=== PATIENT | male | born 1975 | race Caucasian/White ===

== ENCOUNTER → 2016-10-16 | Outpatient (CLI) | payer BC ==
[~2016-10-16] MED LIST: IBUP-103 PO; OMEG10007 PO
== END | disposition home or self-care (01) ==
LOC: C.LAB 17:53
PROVIDERS: ATTEND Orthopaedic Surgery
DX: M25.561 Pain in right knee (principal)

== ENCOUNTER 2023-06-23 09:44 | Observation (INO) ==
--- NOTE | 2023-05-22 10:28 | PAT Medication Instructions ---
Medication Instructions Date of Service May 22, 2023 Home Medications Medication Instructions Recorded oxycodone 5 mg tablet 5 mg PO Q6 PRN pain #30 tabs 04/14/23 diclofenac sodium 75 mg 75 mg PO BID #60 tabs 05/07/23 tablet,delayed release MEDICATION LIST omega 2-yic-uey-fish oil 1,000 mg (120 mg-180 mg) capsule (Fish Oil) 3 cap PO TID Tumeric Supplement 1 tab PO TID bupropion HCl 100 mg tablet 100 mg PO BID PRN anxiety oxycodone 5 mg tablet 5 mg PO Q6 PRN pain diclofenac sodium 75 mg tablet,delayed release 75 mg PO BID MEDICATION INSTRUCTIONS ASK your surgeon for instructions diclofenac sodium 75 mg tablet,delayed release 75 mg PO BID STOP taking 2 weeks before surgery omega 2-eyj-mcv-fish oil 1,000 mg (120 mg-180 mg) capsule (Fish Oil) 3 cap PO TID Tumeric Supplement 1 tab PO TID Take morning of surgery With a small sip of water, OTHERWISE NOTHING TO EAT OR DRINK AFTER MIDNIGHT: bupropion HCl 100 mg tablet 100 mg PO BID PRN anxiety oxycodone 5 mg tablet 5 mg PO Q6 PRN pain (if needed) Take evening before surgery bupropion HCl 100 mg tablet 100 mg PO BID PRN anxiety oxycodone 5 mg tablet 5 mg PO Q6 PRN pain Other Notes If you have any questions please call us at [phone] or [phone] or [phone] or [phone]
--- NOTE | 2023-06-01 09:05 | Anesthesiology Consultation ---
Date of Service June 01, 2023 Assessment & Plan (1) Encounter for pre-operative examination: Chart Review Chart Review: Acceptable Risk for Surgery and Patient seen in Pre Admission Testing Pt with significant needle phobia (specifically with IV)- surgeon usually premedicates patient with benzo DOS Pt has needle phobia but is not against SAB if pre-medicated beforehand. Does NOT want to see needle. Last TKA done under [facility] (pt will discuss types of anesthesia with anesthesiologist DOS) - will leave to anesthesiologist discretion on final type of anesthesia (pt also has significant PONV history) - Pt is NOT an OPJ candidate due to procedure being a revision Per PAT appt on 06/01/23, no recent illness/disease exposures, illness related symptoms, or recent illness/disease positive tests. Will leave to surgeon's discretion if preop Covid testing needed Left knee unicompartment arthroplasty 06/17/22= Done under [facility] with LMA #5. PNB placed Teaching & Discussion Pre-Anesthesia Teaching/Discussion Notes: Instructed NPO after midnight before surgery,except medications with 15 cc of water. Medication instructions p rovided according to the PAT guidelines. History Surgery Operation Date: 06/23/23 07:15 Proposed Procedures p Right Revision Total Knee Arthroplasty - Jae Hernandez, Height/Weight Height: 6 ft 2 in Weight: 122.6 kg Allergies Allergy/AdvReac Type Severity Reaction Status Date / Time No Known Allergies Allergy Verified 05/20/23 15:45 Medications Home Medications Medication Instructions Recorded Confirmed Last Taken omega 0-kex-yui-fish oil 1,000 mg 3 cap PO TID 01/04/20 05/20/23 06/03/22 (120 mg-180 mg) capsule (Fish Oil) Tumeric Supplement 1 tab PO TID 05/30/22 05/20/23 06/03/22 bupropion HCl 100 mg tablet 100 mg PO BID PRN anxiety 05/30/22 05/20/23 Unknown oxycodone 5 mg tablet 5 mg PO Q6 PRN pain #30 tabs 04/14/23 05/20/23 Unknown diclofenac sodium 75 mg 75 mg PO BID #60 tabs 05/07/23 05/20/23 Unknown tablet,delayed release Past Medical History Medical History Obesity History of COVID-19 06/2020- body aches, low grade fever 08/2020 - body aches >resolved Anxiety Osteoarthritis Exercise / Class Metabolic Activity II 4-5 Yardwork/Stairs/Walk up hill (one flight of stairs - no chest pain or SOB ) Past Family History Family History Other No family history of adverse response to anesthesia Past Surgical History Surgical History Status post left partial knee replacement (~05/2022) History of total right knee replacement Right TKA, removal of hardware (10/13/14): LMA#5 + PNB at [facility]. No issues noted per post-op anesthesia progress note. Per anesthesia record, done under [facility] because "Pt. is afraid of spinal" H/O elbow surgery left elbow tricep tendon repair History of repair of left rotator cuff History of anesthesia reaction Feels exhausted/flu-like symptoms for days after surgery Nausea and vomiting after administration of anesthetic agent Hx of left knee surgery x3 Status post osteotomy History of lumbar surgery Past Anesthesia History No Hx of Anesthesia Complications (with exception to PONV and feeling unwell for 1-2 days ) and No Family Hx of Anesthesia Complications History of PONV No Hx of Motion Sickness and History of PONV Social History Smoking Status: Never smoker Do You Dip or Chew Tobacco: No Hx Alcohol Use: Yes Alcohol type: beer alcohol intake frequency: a few times a week Hx Substance Use: No substance use type: does not use Review of Systems - Hx of snoring- no hx of sleep study Patient denies chest pain, shortness of breath, dyspnea on exertion, reflux, cough, wheezing, palpitations. No hx of seizures, stroke, ME. No hx of blood clots or blood transfusions Physical Exam Vital Signs VITALS BP 125/85 P 74 TEMP 98.3 SP02 98% RESP 16 Constitutional no acute distress ENMT Mouth: no TMJ clicking Thyromental Distance: > or= 3.5 Finger Breadths (4.0) Mallampati Class: II Neck neck extension not limited Respiratory normal respiratory effort; no respiratory distress Auscultation: lungs clear to auscultation bilaterally; no wheezes Cardiovascular Rate/Rhythm: regular rate and regular rhythm Heart Sounds: no murmur Vessels: no carotid bruit Musculoskeletal Spine: no pain with cervical ROM Extremities: extremities normal to inspection Psychiatric Orientation: alert Lab Results Anesthesia Preop Results Results Anesthesia Widget: WBC 5.19 K/ul (4.8-10.8) 06/01/23 Hgb 13.1 g/dl (14.0-18.0) L 06/01/23 Hct 39.0 % (42.0-52.0) L 06/01/23 Plt 208 K/uL (130-400) 06/01/23 Na 139 mmol/L (136-145) 06/01/23 K 4.1 mmol/L (3.5-5.1) 06/01/23 Cl 106 mmol/L (98-107) 06/01/23 CO2 28 mmol/L (21-32) 06/01/23 BUN 17 mg/dl (6-23) 06/01/23 Creat 1.09 mg/dl (0.6-1.4) 06/01/23 Glucose Level 95 mg/dl (70-99(Fasting)) 06/01/23 PT 11.0 Seconds (9.0-12.0) 06/01/23 PTT 30.2 Seconds (21.0-31.0) 06/01/23 INR 1.0 (0.9-1.1) 06/01/23 Blood Type O Positive 06/01/23 Antibody Screen NEGATIVE 06/01/23 Testing Electrocardiogram Date: 06/01/23 Findings: + NSR @ (75bpm) Incomplete RBBB When compared to EKG from Jun 02, 2022- no significant change was found per cardio Chest X-Ray Date: 06/01/23 Findings: + NAD FINDINGS: Cardiomediastinal and hilar silhouettes are within normal limits. No pneumothorax, pleural effusion or airspace consolidation. Bones appear grossly intact. Chronic widening of the right AC joint.
--- NOTE | 2023-06-23 06:10 | History & Physical Report ---
Date of Service June 23, 2023 Assessment & Plan (1) Aseptic loosening of prosthetic knee: We will proceed with a right revision total knee arthroplasty. Postoperatively he will be started on aspirin for DVT prophylaxis and kept overnight in the hospital for postop medical management. He plans to use energy physical therapy upon discharge. History of Present Illness Chief Complaint: Aseptic loosening of the right knee. Primary Care Provider: Richard Ellington MD Carol is a pleasant 47-year-old male who had a bad knee injury while playing football when he was younger. He had multiple surgeries to it. Unfortunately, he went on to develop bad arthritis in the right knee. I did a knee replacement on him in 2014. The knee replacement has been somewhat successful. It did help with some of his pain but he has been having a lot of medial-sided tibial pain over the years. It has been much worse recently. There are times where he has difficulty walking because of it. He cannot walk long distances with his family. It seems to be getting worse. 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 After failed conservative treatment, he has elected proceed with a revision of his right knee. Allergies Allergy/AdvReac Type Severity Reaction Status Date / Time No Known Allergies Allergy Verified 05/20/23 15:45 Home Medications Medication Instructions Recorded Confirmed Type omega 9-icz-vpx-fish oil 1,000 mg 3 cap PO TID 01/04/20 05/20/23 History (120 mg-180 mg) capsule (Fish Oil) Tumeric Supplement 1 tab PO TID 05/30/22 05/20/23 History bupropion HCl 100 mg tablet 100 mg PO BID PRN anxiety 05/30/22 05/20/23 History oxycodone 5 mg tablet 5 mg PO Q6 PRN pain #30 tabs 04/14/23 05/20/23 Rx diclofenac sodium 75 mg 75 mg PO BID #60 tabs 05/07/23 05/20/23 Rx tablet,delayed release diazepam 5 mg tablet 5 mg PO USEASDIRECTD #2 tabs 06/22/23 Rx Past Med/Surg History Medical History Obesity History of COVID-19 06/2020- body aches, low grade fever 08/2020 - body aches >resolved Anxiety Osteoarthritis Surgical History Status post left partial knee replacement (~05/2022) History of total right knee replacement Right TKA, removal of hardware (10/13/14): LMA#5 + PNB at [facility]. No issues noted per post-op anesthesia progress note. Per anesthesia record, done under [facility] because "Pt. is afraid of spinal" H/O elbow surgery left elbow tricep tendon repair History of repair of left rotator cuff History of anesthesia reaction Feels exhausted/flu-like symptoms for days after surgery Nausea and vomiting after administration of anesthetic agent Hx of left knee surgery x3 Status post osteotomy History of lumbar surgery Family History Other No family history of adverse response to anesthesia Social History Smoking Status: Never smoker Second Hand Exposure: No; Do You Dip or Chew Tobacco: No; Tobacco Cessation Education Requested by Patient: No Hx Alcohol Use: Yes Alcohol type: beer Hx Substance Use: No Preferred Language: Greenlandic Communication Ability: Effective 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 Physical Exam On physical examination the right knee, he has good range of motion of 0 to 120 degrees. No gross instability. Most of his pains over the medial tibial plateau and along the medial joint line.. Constitutional WD/WN, vitals as above Eyes PERRL, conjunctivae normal, anicteric sclerae ENMT external ear and nose normal, oropharynx normal Neck trachea midline, no thyromegaly Respiratory normal respiratory effort Cardiovascular RRR, no murmur, no edema Gastrointestinal (Abdomen) normal bowel sounds, soft, nontender, no hepatosplenomegaly Psychiatric A+Ox3, euthymic affect Results & Data Results & Data Laboratory Results . Diagnostic Findings X-rays of the right knee show some lucency around the cement mantle. There is also slight depression of the medial side. Bone scan of the right knee shows signs of aseptic loosening.. PG Care Time/CCT Total # of Minutes Spent Total Time Spent with Patient: Total time spent is greater than 50% in coordination of care (as documented) at patient's floor/unit and/or counseling patient: Coding Level of Care Code None Diagnoses Aseptic loosening of prosthetic knee T84.038A; Z96.659
[~2023-06-23 09:44] MED LIST changes: +ACETAMINOPHEN 500 MG TAB PO SCH; +BUPIVACAINE 0.5 % 5 MG/1 ML PF 10ML VIAL ONE; +FAMOTIDINE 20 MG TAB PO SCH; +GABAPENTIN 900 MG DOSE PO SCH; -IBUP-103 PO; +LR 500ML BOLUS, THEN 15ML/HR IV SCH; +LR 60ML/HR IV SCH; -OMEG10007 PO; +ORTHO JOINT MIX INFIL SCH; +ROPIVACAINE 0.5% 5 MG/ML 30 ML VIAL ONE; +TRANEXAMIC ACID 1,000 MG **IV Intra-op IV SCH; +TRANEXAMIC ACID 1,000 MG **IV Pre-op IV SCH; +dexAMETHasone 4 MG TAB PO SCH
[2023-06-23] MEDS ORDERED: PROPOFOL IV EMULSION 10 MG/ML 20 ML VIAL IV ONE ×5 (10:02→15:26)
[2023-06-23] MEDS ORDERED: fentaNYL citrate PF 100 MCG/2 ML VIAL ONE ×2 (10:03→13:08)
[2023-06-23] MEDS ORDERED: MIDAZOLAM HCL 1 MG/ML 2ML VIAL ONE ×4 (10:03→12:54)
[2023-06-23] MEDS ORDERED: ONDANSETRON INJ 2 MG/ML 2 ML VIAL IV PRN ×2 (11:26→18:36)
[2023-06-23] MEDS ORDERED: ATROPINE SULFATE 0.1 MG/ML 10ML SYR IV PRN (11:26)
[2023-06-23] MEDS ORDERED: fentaNYL citrate PF 100 MCG/2 ML VIAL IV PRN (11:26)
[2023-06-23] MEDS ORDERED: PROMETHAZINE HCL 6.25 MG in SODIUM CHLORIDE 0.9% 50 ML IV PRN (11:26)
[2023-06-23] MEDS ORDERED: ePHEDrine sulfate 50 MG/ML AMP IV PRN (11:26)
[2023-06-23] MEDS ORDERED: ORTHO JOINT ANESTHETIC ONE (13:20)
[2023-06-23] MEDS ORDERED: KETAMINE HCL 10MG/ML SYR ONE (14:31)
--- NOTE | 2023-06-23 16:08 | Operative Report ---
PG Post Operative Report Pre & Post Diagnosis Operation Date: 06/23/23 11:00 Pre-Op Diagnosis: Aseptic loosening right tibial component Post-Op Diagnosis: Aseptic loosening right tibial component I identified the patient and participated in the time-out.: Yes Procedure Operation Date: 06/23/23 11:00 Actual Procedures p Right Total Knee Arthroplasty Revison with revision of the tibial component and the polyethylene insert. (Right) - Jae Hernandez DO Surgeon Jae Hernandez DO Employee Representative James Romero PA-C Estimated Blood Loss 30 Findings Consistent with Post-Op Diagnosis Specimens None Description of Procedure On June 23, 2023 Morenita arrived at [facility] for the above procedure. He was seen in the preoperative holding area and the operative extremity identified and signed. Is given a preoperative antibiotic and a spinal anesthetic. Is taken back the operative room and laid on table in supine position. Is given basic sedation. The right knee was prepped and draped in sterile fashion. A timeout was done. The patient and the operative extremity was properly identified. The previous midline incision was opened back up. Dissection was taken down to the extensor mechanism. A medial parapatellar arthrotomy was used. There was no signs of infection. There was normal synovial fluid that came out of the joint. Significant time was spent removing scar tissue from the medial lateral gutters. Once the scar tissue had all been removed and the patella was mobilized the knee was then flexed. The polyethylene insert was then removed. The femoral component was well seated. The tibial component was grossly loose. This was easily removed with an osteotome. Time was spent removing any redness of cement. The tibia was then exposed. Sequential reaming up to a size 19 reamer was done. 8 proximal tibial resection guide was placed and the proximal tibial cut was freshened up. The tibia was then measured and measured to be a size 79. The central stem was then reamed and the fins were broached. A trial tibial component with a 19 x 80 mm stem was then impacted into place. A 16 mm PS plus bearing was then trialed. The knee was brought through full range of motion and felt to be stable. The trial components were then removed. A 79 Vanguard III 60 tibial implant with a 19 x 80 mm stem and a large cruciate wings were then cemented in place with Biomet cement. Cement was placed around the metaphyseal area and not around the stem. Once cement had hardened a 16 mm PS plus bearing was then placed. The knee was brought through a full range of motion and felt to be stable. The wound was then irrigated. Tourniquet was deflated and hemostasis was obtained. The extensor mechanism was closed with #1 Vicryl. Skin was closed with 2-0 Vicryl, 3 oh V-Loc suture, and miguel. He was then placed in a soft dressing. He was then extubated and transferred to a hospital bed. He was taken to the postanesthesia care unit in stable condition. He tolerated the procedure well. James Romero PA-C, was present for the entire procedure. He was critical for patient positioning, prepping, draping, retraction exposure, wound closure and application of sterile dressing. I attest to the content of the Intraoperative Record and any orders documented therein. Any exceptions are noted below.
[2023-06-23] MEDS ORDERED: SODIUM CHLORIDE 0.9% 50 ML BAG ONE (16:41)
[2023-06-23] MEDS ORDERED: PROMETHAZINE HCL INJ 25 MG/ML 1 ML VIAL ONE (16:42)
--- NOTE | 2023-06-23 17:09 | XRay Report ---
XR knee RT 1 or 2V routine HISTORY: 48 years-old Male Surgical Post Op right knee arthroplasty COMPARISON: 12/31/2022 TECHNIQUE: 2 views of the right knee FINDINGS: Total joint arthroplasty with patellar resurfacing and miguel are present along with expected postop erative soft tissue swelling and deep tissue air. Numerous corticated bone fragments are again noted surrounding the joint space. No acute fracture, dislocation or unexpected opaque foreign body. IMPRESSION: Satisfactory alignment of the total joint arthroplasty. ACT 112: Negative or not required by law. The above report was generated using voice recognition software. It may contain grammatical, syntax o r spelling errors. Electronically signed by: Fortunato Mcnair M.D. 06/23/2023 5:08 PM
--- NOTE | 2023-06-23 17:16 | Anesthesiology Progress Note ---
Date of Service June 23, 2023 Anesthesia Post Procedure Vital Signs Vital Signs: Temp Pulse Pulse Resp BP Pulse Ox O2 Del Method 06/23/23 17:10 67 20 105/65 96 Room Air 06/23/23 17:00 66 17 120/68 97 Room Air 06/23/23 16:50 64 17 114/67 96 Room Air 06/23/23 16:40 67 17 110/68 96 Room Air 06/23/23 16:30 71 15 135/62 96 Room Air 06/23/23 16:23 97.7 F 67 21 137/62 100 Room Air 06/23/23 10:43 98.2 F 66 18 135/85 100 Room Air Transfer of Care Handoff Completed per policy Notes Mental Status: alert / awake / arousable and participated in evaluation Patient Amnestic to Procedure: Yes Nausea / Vomiting: adequately controlled Pain: adequately controlled Airway Patency, RR, SpO2: stable & adequate BP & HR: stable & adequate Hydration State: stable & adequate Neuraxial Anesthesia: was administered and sensory block is resolving Anesthetic Complications: no major complications apparent and Pt Satisfied with anesthetic care
[2023-06-23] MEDS ORDERED: METOCLOPRAMIDE HCL INJ 5 MG/ML 2 ML VIAL IV PRN (18:36)
[2023-06-23] MEDS ORDERED: MAGNESIUM HYDROXIDE SUSP 30 ML UDC PO PRN (18:36)
[2023-06-23] MEDS ORDERED: HYDROmorphone INJ 0.5 MG/0.5 ML SYR IV PRN (18:36)
[2023-06-23] MEDS ORDERED: oxyCODONE HCL IR 5 MG TAB (IMMEDIATE RELEASE) PO PRN (18:36)
[2023-06-23] MEDS ORDERED: bisacodyL 10 MG SUPP PR PRN (18:36)
[2023-06-23] MEDS ORDERED: buPROPion HCl 100 MG TABLET PO PRN (18:36)
[2023-06-23] MEDS ORDERED: NALOXONE HCL 0.4 MG/1 ML VIAL/CARP IV PRN (18:36)
[2023-06-23] MEDS: KETOROLAC 30 MG/ML VIAL IV SCH (20:06)
[2023-06-23] MEDS: SODIUM CHLORIDE 0.9% 1,000 ML IV SCH (20:06)
[2023-06-23] MEDS: OMEGA-3 (PURIFIED FISH OIL) 1 GM CAP PO SCH (20:09)
[2023-06-23] MEDS: ASPIRIN 81 MG ECTAB PO SCH (20:09)
[2023-06-23] MEDS: DOCUSATE SODIUM 100 MG CAP PO SCH (20:09)
[2023-06-23] MEDS ORDERED: SENNA 8.6 MG TAB PO SCH (21:00)
[2023-06-23] MEDS: ceFAZolin 2000MG 2,000 MG/15 ML SYR IV SCH (21:41)
[2023-06-24] MEDS: KETOROLAC 30 MG/ML VIAL IV SCH ×2 (00:35→06:28)
[2023-06-24] MEDS: ceFAZolin 2000MG 2,000 MG/15 ML SYR IV SCH (05:34)
[2023-06-24] MEDS: SODIUM CHLORIDE 0.9% 1,000 ML IV SCH (05:35)
[2023-06-24 07:09] VITALS: BP 135/83; PULSE 86; RESP 18; TEMP 97.9; O2SAT 98
[2023-06-24] MEDS ORDERED: dexAMETHasone 4 MG TAB PO SCH (08:00)
[2023-06-24] MEDS: DOCUSATE SODIUM 100 MG CAP PO SCH (08:04)
[2023-06-24] MEDS: OMEGA-3 (PURIFIED FISH OIL) 1 GM CAP PO SCH (08:05)
[2023-06-24] MEDS: ASPIRIN 81 MG ECTAB PO SCH (08:06)
[2023-06-24] MEDS ORDERED: MULTIVITAMIN TAB PO SCH (09:00)
--- NOTE | 2023-06-24 09:39 | Orthopedic Progress Note ---
Date of Service June 24, 2023 Assessment & Plan (1) Status post revision of total replacement of right knee: Overall he is doing quite well today with good pain control involving the right knee. He will be seen by physical therapy today for ambulation and range of motion exercises. He is on aspirin for DVT prophylaxis. He can be discharged home later today. He will follow-up in orthopedics in 2 weeks for postoperative care. Iva . Morenita was seen this morning at bedside in no apparent distress. He states that his pain is well-controlled at this point to the right knee is much better than preoperatively. He has been up and ambulating to the bathroom. He has no concerns today. Review of Systems All systems reviewed & are unremarkable except as noted in HPI & below. Physical Exam . On physical examination of the right knee, the dressings are clean, dry, and intact. His leg is out in full extension. Active plantarflexion dorsiflexion to the right ankle. +2 DP and PT pulses. Less than 2-second capillary refill. Normal sensation. Neurovascular intact. Results & Data Results & Data Laboratory Results . Diagnostic Findings . Postoperative x-rays of the right knee show the prosthesis to be in anatomical alignment without any evidence of fracture complication or loosening. PG Care Time/CCT Total # of Minutes Spent Total Time Spent with Patient: Total time spent is greater than 50% in coordination of care (as documented) at patient's floor/unit and/or counseling patient: Coding Level of Care Code 51880 Post Operative Follow-Up Diagnoses Status post revision of total replacement of right knee Z96.651
--- NOTE | 2023-06-24 09:41 | Discharge Summary ---
Date of Service June 24, 2023 Admission HPI (Per Admitting) Carol is a pleasant 47-year-old male who had a bad knee injury while playing football when he was younger. He had multiple surgeries to it. Unfortunately, he went on to develop bad arthritis in the right knee. I did a knee replacement on him in 2014. The knee replacement has been somewhat successful. It did help with some of his pain but he has been having a lot of medial-sided tibial pain over the years. It has been much worse recently. There are times where he has difficulty walking because of it. He cannot walk long distances with his family. It seems to be getting worse. 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 After failed conservative treatment, he has elected proceed with a revision of his right knee. Admission Exam (Per Admitting) On physical examination the right knee, he has good range of motion of 0 to 120 degrees. No gross instability. Most of his pains over the medial tibial plateau and along the medial joint line.. Principal Diagnosis Same as "Discharge Diagnosis" noted below under Discharge Instructions. Discharge Exam . On physical examination of the right knee, the dressings are clean, dry, and intact. His leg is out in full extension. Active plantarflexion dorsiflexion to the right ankle. +2 DP and PT pulses. Less than 2-second capillary refill. Normal sensation. Neurovascular intact. Discharge Data Procedures Performed Operation Date: 06/23/23 11:00 Actual Procedures p Right Total Knee Arthroplasty Revison(Right) - Jae Hernandez DO Ordered Studies 06/23/23 05:00 US - OR guided needle placemen Routine Hospital Course (1) Status post revision of total replacement of right knee: On 06/23/2023, Morenita arrived at [facility] and underwent a right total knee revision arthroplasty. He had a spinal anesthetic. Postoperatively, he was started on aspirin and transferred to the general orthopedic floor in stable condition. His hospital course was uneventful. On postoperative day #1, his vital signs are stable and his pain was well-controlled. He was able to participate well with physical therapy doing ambulation and range of motion exercises. He was then discharged home. He will follow-up in 2 weeks with orthopedics for postoperative care. PG Care Time/CCT Total # of Minutes Spent Total Time Spent with Patient: Total time spent is greater than 50% in coordination of care (as documented) at patient's floor/unit and/or counseling patient: Discharge Plan Discharge Items Patient Disposition: Home - Home Health Services Reason For Visit: Painful Right Total Knee Arthroplasty Discharge Diagnosis: Right knee replacement Activity: Per Instructions section Non-emergency contact: Surgeon Call non-emergency contact if: your wound has increased redness and your wound has increased drainage Follow-up/Referrals: Richard Ellington MD [Primary Care Provider] - Diet: Regular Addtl Attending Provider Instructions: Activity and Therapy Recommendations: * If you are using [facility] then therapy will be provided at your home until they feel you have accomplished all of your goals. * If you are using [facility] then Physical Therapy will be provided until they feel you are ready to start Outpatient Physical Therapy. * If you are not using home therapy then Outpatient Physical Therapy should start about 3-5 days from your day of surgery. Therapy will last about 6-10 weeks * It is important not to put a pillow under your knee when you are relaxing or sleeping. It is just as important to make sure you are getting your knee perfectly straight as it is to regain your knee bend. * You were shown a series of exercises in the hospital. Do these exercises three times each day including the exercises you were shown in physical therapy. * Get up and walk several times each day. For the first four weeks, try not to stand or walk for more than one hour at a time. If you do stand or walk for more than one hour, you will not hurt anything, but your leg will likely swell. * As you feel comfortable, you may change from the walker or crutches to a cane and then to independent walking. Medications: * Narcotic You will likely be sent home from the hospital with a prescription for the narcotic pain medication that worked best throughout your stay. * Cefadroxil -take the antibiotic twice a day for 10 days to help prevent infection. * Aspirin Most patients will be required to take Aspirin 81mg twice a day for 6 weeks after surgery. This is obtained [id number] and a prescription is not necessary. * Other medications may be prescribed for specific circumstances. If you have any questions, please call the office at . * Resume previous home medications unless otherwise instructed TEDs/Elastic Stockings: The white elastic stockings help limit swelling and prevent blood clots from fo rming in your legs.~ The more you wear them, the more they work. Wear them for six weeks. Dressing Care: The dressing can be changed after physical therapy on postop day #1. Daily dry dressing changes for a few days, especially if the incision is still draining some. If the incision is not draining then you may leave the miguel open to air. If there is a little bit of drainage or if the miguel are getting stuck on your clothing then cover the incision with a dry dressing. The miguel will be removed at your 2 week follow-up appointment. Showering: You may shower 5 days from the day of surgery as long as the incision is no longer draining. You may shower with the miguel exposed. Let soapy water run over the miguel and pat them dry. Do not scrub or soak the incision. Things To Watch For: * Drainage from the incision site that occurs more than one week after your surgery. * Increased redness at the incision site. * Fever above 102 degrees Fahrenheit. * Unusual chest pain or shortness of breath. * Call [facility] at with any of the above problems Follow-Up Visit: Follow-up with Dr. Hernandez's PA (Jae Garrett) 2-3 weeks after your day of surgery. He will remove your miguel and answer any questions. If you have any additional questions or concerns, Dr Hernandez is usually in the office at the same time and will be available An appointment was probably scheduled when you signed-up for surgery in the office. If you have any questions call Office Instructions: More detailed instructions as well as Frequently Asked Questions were provided in a folder by our office when you signed-up for surgery. Please review these instructions when you get home. If you have any further questions or concerns, please feel free to call the office at [phone] Pending Studies at Discharge: No Stand-Alone Forms: My [facility], Smoking Cessation Medications and DC Order Prescriptions: New aspirin 81 mg Tablet,Delayed Release (Dr/Ec) 81 mg PO BID 42 Days Qty: 84 0RF oxycodone 5 mg Tablet 5 - 10 mg PO Q6 PRN (Reason: pain) Qty: 30 0RF cefadroxil 500 mg capsule 500 mg PO BID 10 Days Qty: 20 0RF Continued diazepam 5 mg tablet 5 mg PO USEASDIRECTD Qty: 2 0RF Rx Instructions: 1-1 PO 2 hrs PRIOR TO PROCEDURE; 1 PO 5 MINPRIOR TO PROCEDURE omega 2-bup-lxl-fish oil [Fish Oil] 1,000 mg (120 mg-180 mg) Capsule 3 cap PO TID Patient Comments: *pt states stopped taking 2 weeks ago bupropion HCl 100 mg Tablet 100 mg PO BID PRN (Reason: anxiety ) Tumeric Supplement 1 tab PO TID Discontinued diclofenac sodium 75 mg tablet,delayed release (DR/EC) 75 mg PO BID Qty: 60 2RF oxycodone 5 mg tablet 5 mg PO Q6 PRN (Reason: pain) Qty: 30 0RF Admission Data Admit Date/Time: 06/23/23 16:11 Attending Provider: Jae Hernandez Admit Provider: Jae Hernandez Primary Care Provider: Richard Ellington
== END 2023-06-24 11:11 | disposition home health service (06) ==
LOC: 3N 09:44 → ASU 09:44
DX: Y79.2 Prosthetic and other implants, materials and accessory orthopedic devices associated with adverse incidents; Z86.16 Personal history of COVID-19; Z87.39 Personal history of other diseases of the musculoskeletal system and connective tissue; E66.9 Obesity, unspecified; T84.032A Mechanical loosening of internal right knee prosthetic joint, initial encounter; Z96.653 Presence of artificial knee joint, bilateral; Z68.35 Body mass index [BMI] 35.0-35.9, adult; Z87.828 Personal history of other (healed) physical injury and trauma